=== PATIENT | female | born 1990 | race Caucasian/White ===

== ENCOUNTER 2017-03-01 14:08 | Emergency (ER) | payer SELFPAY ==
[~2017-03-01] VITALS: Ht 167.6 cm; Wt 97.3 kg
[~2017-03-01 14:08] MED LIST: CALCIUM600 M2 PO; DEPAKOTE PO; FIORICET W/CODE1 CA1 PO; LEXAPRO20 MG PO; MECLIZINE25 MG PO; MULTIPLE VITAMI1 CAP PO; NEURONTIN300 MG PO; PERCOCET 325 MG1 TA2 PO; REMERON15 MG PO; TREXIMET
[2017-03-01 14:15] VITALS: BP 127/66; PULSE 87; TEMP 99.2
[2017-03-01] MEDS ORDERED: NORCO 325 MG-7.1 TAB PO (16:11)
== END 2017-03-01 16:27 | disposition home or self-care (01) ==
LOC: COL.ER 14:08
DX: S52.124A Nondisplaced fracture of head of right radius, initial encounter for closed fracture (principal); M25.522 Pain in left elbow; W01.198A Fall on same level from slipping, tripping and stumbling with subsequent striking against other object, initial encounter; G43.909 Migraine, unspecified, not intractable, without status migrainosus